=== PATIENT | female | born 2000 | race Caucasian/White ===

== ENCOUNTER 2018-10-09 17:21 | Inpatient (IN) | payer OTHER ==
[~2018-10-09] VITALS: Ht 157.5 cm; Wt 69.9 kg
[2018-10-11] MEDS ORDERED: IBUPROFEN800 MG PO (09:56)
== END 2018-10-11 10:28 | disposition home or self-care (01) | DRG 819 ==
LOC: ER 17:21 → SURG 21:01 → SEC-K 21:01 → SURG 23:04
PROVIDERS: ADMIT Obstetrics & Gynecology
PROC: BU46ZZZ Ultrasonography of Uterus (ICD-10-PCS; 2018-10-09)
PROC: 10T24ZZ Resection of Products of Conception, Ectopic, Percutaneous Endoscopic Approach (ICD-10-PCS; 2018-10-10)
PROC: 0UT64ZZ Resection of Left Fallopian Tube, Percutaneous Endoscopic Approach (ICD-10-PCS; principal; 2018-10-10 14:15)
DX: O00.102 Left tubal pregnancy without intrauterine pregnancy (principal); E10.9 Type 1 diabetes mellitus without complications